=== PATIENT | male | born 1945 | race Caucasian/White ===

== ENCOUNTER 2024-08-02 09:45 | Inpatient (IN) | payer OTHER, SELFPAY ==
[2024-07-31 14:58] LABS: % Basophils 0.4 % (0-2); % Eosinophils 5.2 % (0-6); % Immature Granulocytes 0.3 % (0-0.5); % Lymphocytes 9.4 % (20.5-51.1); % Monocytes 6.6 % (1.7-9.3); % Neutrophils 78.1 % (42.2-75.2); Absolute Basophils 0.1 10^3/uL (0-0.2); Absolute Eosinophils 0.8 10^3/uL (0-0.7); Absolute Immature Granulocytes 0.1 10^3/uL (0-0.05); Absolute Lymphocytes 1.4 10^3/uL (1.2-3.4); Absolute Neutrophils 11.6 10^3/uL (1.4-6.5); Hemoglobin 12.7 g/dL (13.0-18.0); Mean Corp Hgb Conc. 31.8 g/dL (33.0-37.0); Mean Corpuscular Hgb 27.3 pg (27.0-31.0); Mean Platelet Volume 9.1 fL (7.4-10.4); Nucleated Red Blood Cells % 0 % (-); Platelet Count 330 10^3/uL (130-400); Red Blood Cell Count 4.65 10^6/uL (4.70-6.10); Red Cell Dist. Width 15.9 % (11.5-14.5); White Blood Cell Count 14.9 10^3/uL (4.8-10.8)
[2024-07-31 15:10] LABS: ALT (SGPT) 12 U/L (0-50); AST (SGOT) 23 U/L (17-59); Albumin 3.8 g/dl (3.5-5.0); Alkaline Phosphatase 91 U/L (38-126); Blood Urea Nitrogen 22 mg/dl (9-20); Calcium 9.2 mg/dl (8.4-10.2); Carbon Dioxide 28 mmol/L (22-30); Chloride 108 mmol/L (98-107); Glucose 116 mg/dl (70-99); Potassium 4.7 mmol/L (3.5-5.1); Sodium 142 mmol/L (135-145); Total Bilirubin 0.9 mg/dl (0.2-1.3); Total Protein 6.5 g/dl (6.3-8.2); eGFR > 60.00
[2024-07-31 16:21] VITALS: BMI 22.4
[2024-07-31 16:24] VITALS: BP 122/94
[2024-07-31 16:35] LABS: Urine Albumin 4+ (Neg - Trace); Urine Bilirubin Negative (Negative); Urine Character Cloudy (Clear); Urine Glucose Negative (Negative); Urine Ketone 2+ (Negative); Urine Leukocyte 3+ (Negative); Urine Nitrite Negative (Negative); Urine Occult Blood 4+ (Negative); Urine Specific Gravity 1.025 (<1.030); Urine Urobilinogen 1+ (Neg - 1+)
[2024-07-31 16:37] LABS: Urine Color Orange
[2024-07-31 16:43] LABS: Urine Squamous Cell 0-2 /LPF (Few)
[2024-07-31 16:44] LABS: Urine Bacteria Many (Negative); Urine Red Blood Cell 30-40 /HPF (0-2)
--- NOTE | 2024-07-31 18:01 | ED.GENMED ---
History of Present Illness
General
Chief Complaint: Abdominal Symptoms
Source: patient
Exam Limitations: none
Time Seen by Provider: 07/31/24 16:14
Nursing documentation reviewed up to this point in time: agreed with
History of Present Illness
History of Present Illness:
79-year-old male presenting to the emergency department today with concerns of what he believes is a hernia some swelling to the right lower suprapubic region and groin area. Ongoing for the past 10 days. Has been able to have bowel movements.
Does feel slight constipation. Denies any fevers nausea vomiting.
Review of Systems
Review of Systems
Allergies reviewed?: Yes
All Other Systems: ROS reviewed and negative except as documented in HPI and ROS
Phy Exam
Physical Exam
Physical Exam:
GENERAL: Alert , in no apparent distress
EYE: pupils equal and reactive
NECK: Supple, no significant adenopathy.
ENT: o/p clr, mmm.
CARDIAC: Regular rate and rhythm .
LUNGS: Clear breath sounds bilaterally, no acute respiratory distress, no wheezes/rales/rhonchi
ABDOMEN: Soft, without focal tenderness, no r/g, no cvat
NEUROLOGICAL: Alert and oriented, no focal neuro deficits
SKIN: Warm and dry, skin intact.
MUSCULOSKELETAL: No edema, well perfused.
PSYCH: Normal and appropriate interaction.
Course
Orders/Labs/Results
Orders:
Orders
07/31/24 14:48
Complete Blood Count/With Diff Urgent
Comprehensive Metabolic Panel Urgent
07/31/24 16:25
Urinalysis Reflex To Culture Urgent
Date Specimen was Collected: 07/31/24
Time Specimen was Collected: 16:22
Urine Microscopic Reflex Cult Urgent
Urine Culture Urgent
PEPPER Source: U
Specimen Description:
Obtained by: Random
Date Specimen was Collected: 07/31/24
Time Specimen was Collected: 16:22
07/31/24 16:58
CT Abd/Pel (IV only)-DH only Urgent
Comment:
Reason For Exam: right lower abd pain
07/31/24 20:12
Ibuprofen [Motrin] 600 mg PO NOW STA
Abnormal Lab Results
07/31/24 07/31/24
14:48 16:25
WBC 14.9 H 10^3/uL
(4.8-10.8)
RBC 4.65 L 10^6/uL
(4.70-6.10)
Hgb 12.7 L g/dL
(13.0-18.0)
MCHC 31.8 L g/dL
(33.0-37.0)
RDW 15.9 H %
(11.5-14.5)
Abs Immat Gran (auto) 0.1 H 10^3/uL
(0-0.05)
Absolute Neuts (auto) 11.6 H 10^3/uL
(1.4-6.5)
Absolute Monos (auto) 1.0 H 10^3/uL
(0.1-0.6)
Absolute Eos (auto) 0.8 H 10^3/uL
(0-0.7)
Neutrophils % 78.1 H %
(42.2-75.2)
Lymphocytes % 9.4 L %
(20.5-51.1)
Chloride 108 H mmol/L
(98-107)
BUN 22 H mg/dl
(9-20)
Glucose 116 H mg/dl
(70-99)
Urine Ketones 2+ A
(Negative)
Ur Occult Blood Reflex 4+ A
(Negative)
Leukocyte Esterase Rfl 3+ A
(Negative)
Urine RBC 30-40 A /HPF
(0-2)
Urine Bacteria (Reflex) Many A
(Negative)
Urine Albumin (Reflex) 4+ A
(Neg - Trace)
07/31/24 14:48
07/31/24 14:48
Vital Signs
Initial and Last Documented VS:
Initial Vital Signs
Temp Pulse Resp Pulse Ox
97.5 F 92 16 98
07/31/24 14:36 07/31/24 14:36 07/31/24 14:36 07/31/24 14:36
Last Documented Vital Signs
Temp Pulse Resp BP Pulse Ox
99.2 F 93 18 116/74 94
07/31/24 16:24 07/31/24 20:11 07/31/24 20:11 07/31/24 20:11 07/31/24 20:11
MDM/Problems Addressed
MDM/Problems Addressed:
79-year-old male presenting to the emergency department today with concerns of right groin discomfort believes he has a hernia seems to be out for the last 10 days has been able to have bowel movements no nausea or vomiting. Mild discomfort to the
area here. No significant redness or warmth. CT scan performed showing significant inflammation to the bladder potentially consistent with mural mass as well as additional findings potentially consistent with metastatic disease as well as
alternate cancerous process. Concerning the patient likely has very poor outpatient follow-up has not followed up regularly in many years patient was admitted for further assessment of this.
*Critical Care Note
Total Time (30-74mins, 75-104mins- exclusive of procedures): Not Applicable
ED Attending Note
-
Portions of this chart may have been created with voice recognition software.� Occasional wrong word or��sound alike� substitutions may have occurred due to the inherent limitations of voice recognition software.
Discharge Plan
Departure
Patient Disposition: Admit
Date of Disposition: 07/31/24
Time of Disposition: 21:17
Admit to: Med/Surg
Admit to doctor: Aurelio
Presentation/result/management discussed w/ accepting MD/DO: Hospitalist
Patient with high blood pressure during this ER visit?: No
Condition: Good
Covid-19: Not Applicable
Discharge Problem:
Bladder mass
Prescriptions:
No Action
acetaminophen [Tylenol] 325 mg Tablet
650 mg PO TID
Referrals:
Steven Carey MD [Family Provider, Internal Medicine]
Interventions
Interventions:
*Risk Screen - Suicide Last Done: 07/31/24 14:36
*General Assessment Last Done: 07/31/24 16:22
*Neglect/Abuse Screening Last Done: 07/31/24 14:36
*ED- Fall Risk Assessment Last Done: 07/31/24 16:22
*ED COVID-19 Vaccine History Last Done: 07/31/24 16:22
SM-Qbdpmq-Elesqnsfnq Assessment Last Done: 07/31/24 16:35
Discharge Date and Time
Print Language: GUAMANIAN
[2024-07-31 18:14] VITALS: BP 147/73
[2024-07-31 20:11] VITALS: BP 116/74
[2024-07-31] MEDS: MOTRIN 600 MG PO (20:25)
--- NOTE | 2024-07-31 20:45 | HPS.HSE ---
Addendum entered and electronically signed by Beltran Carey DO 07/31/24 22:35:
Patient seen and examined independently. Agree with findings and plan as set forth by TRISTEN Corcoran.
Patient is a 79y M with PMH significant for BPH who presents to ED complaining of R groin pain and bulging. Patient states that he has had pain in the R groin area for about 2 years now. This has become progressively worse. he has been using a
cane for ambulation and notes that he cannot stand for long periods or ambulate well due to pain. He was seen by his PCP in May who felt this may be arthritis and advised x-rays. He did not have those completed. More recently, patient has noted
'bulge' in the area of the R groin - this has been for about 10 days. He presented to the ED this evening for evaluation.
Incidentally, patient complains of urinary symptoms which he attributes to enlarged prostate. This includes difficulty with urination as well as fairly frequent / intermittent hematuria.
He denies any chest pain or dyspnea.
He is a life-long smoker.
Ass:
Bladder Mass
Mediastinal Mass
Right Groin Pain
Plan:
Admit for further evaluation and treatment.
Urology evaluation for bladder mass / thickening and hematuria.
Would likely benefit from cystoscopic examination.
? if bladder abnormality / associated inflammation explain his R groin pain symptom?
Dedicated CT Chest in AM for evaluation of mediastinal mass.
Pulm / IR / CT Surgery evaluation for further input / tissue sampling following results of chest imaging.
PT eval. Pain control.
Original Note:
Family Physician
-
Family Physician: Steven Carey
Chief Complaint
-
right groin/RLQ of abdomen pain
History of Present Illness
Patient is a 79-year-old male with past medical history significant for enlarged prostate who presented to [facility] ED for evaluation of pain to right groin and right lower quadrant abdomen. Patient states he has what he believes to appear as a right
inguinal hernia that has been causing extreme sharp pain with movement or when he coughs. He explains there is enlarged area in right groin/right lower quadrant of abdomen that has been present for approximately 10 days. He denies any fever, chills,
shortness of breath, chest pain, nausea, vomiting, constipation, diarrhea or new urinary symptoms. Patient states he has known he has had an enlarged prostate for last three years and frequently notices hematuria. He also reports a dry cough for the
past week.
Medical History
Past Medical History
Past Medical History: Reports Other
Additional Past Medical History:
enlarged prostate
Past Surgical History: Reports None
Social History
Tobacco: Smoker (0.5 pack per day for 65 years, approximately 32 pack year history )
Alcohol: None
Drug: None
Personal:
Living: Other (motel in [place] with a roommate )
Employment: Retired
Family History
Family History: Not pertinent
Allergies / Home Medications
Allergies reflects when Allergies were last updated in [facility].
Home Medications with original date entered in [facility]
Allergy/Medication List:
Allergies
Allergy/AdvReac Type Severity Reaction Status Date / Time
No Known Allergies Allergy Verified 07/31/24 16:28
Home Medications
acetaminophen 325 mg tablet (Tylenol) 650 mg PO TID 07/31/24
Review of Systems
-
History Source: Patient
Respiratory: Reports Cough (dry )
Abdomen/GI: Reports Abdominal Pain (RLQ and right groin pain with movement or coughing )
: Reports Urgency and Bleeding
Physical Exam
Vital Signs
Vital Signs
Temp Pulse Resp BP Pulse Ox
99.2 F 93 18 116/74 94
07/31/24 16:24 07/31/24 20:11 07/31/24 20:11 07/31/24 20:11 07/31/24 20:11
Physical Exam
General: Well Developed, Well Nourished and No Apparent Distress
HEENT: NormoCephalic, Moist mucous membranes and Atraumatic
Respiratory: Clear
Cardiac: S1/S2 and Regular Rhythm
Breast: Deferred by me
GI: Soft, Non Tender, Non Distended, Normal Bowel Sounds and Other (enlarged area, soft and tender to palpation in RLQ )
Rectal: Deferred by Provider
Genito-urinary: Deferred by me
Musculoskeletal: No Clubbing, No Cyanosis and No Edema
Skin: IV/Catheter Site
Neuro: Awake, Alert, AO x 3 and Nonfocal/grossly intact
Psych: Calm
Laboratory Results
-
07/31/24 14:48
07/31/24 14:48
Laboratory Results
Total Bilirubin 0.9 mg/dl (0.2-1.3) 07/31/24 14:48
AST 23 U/L (17-59) 07/31/24 14:48
ALT 12 U/L (0-50) 07/31/24 14:48
Alkaline Phosphatase 91 U/L (38-126) 07/31/24 14:48
Data Reviewed
-
CT Scan: Report Reviewed by me (Abd/Pel: Severe superior bladder wall thickening concerning for a mural mass. Cystitis and bladder outlet obstruction cannot be excluded. Moderate prostate hypertrophy. Focal luminal narrowing of the mid transverse
colon possibly peristalsis. An apple core lesion cannot be excluded. This could fur)
Lab Data: Labs Reviewed by me (WBC 14.9, )
Impression/Plan
-
IMPRESSION/PLAN:
#bladder mass
#mediastinum mass
Abd/Pel CT: Severe superior bladder wall thickening concerning for a mural mass. Cystitis and bladder outlet obstruction cannot be excluded.
Moderate prostate hypertrophy.
Focal luminal narrowing of the mid transverse colon possibly peristalsis. An apple core lesion cannot be excluded. This could further be evaluated by barium enema or colonoscopy. Repeat
imaging with rectal contrast was also be performed.
Too small to hypodense hepatic lesions likely small cysts or hemangiomas. Additional hypodense lesion near the fissure for the ligamentum teres likely focal fatty infiltration. Metastatic disease
cannot be excluded.
Incompletely imaged pleural-based soft tissue mass along the right mediastinum concern for malignancy until proven otherwise. Nonurgent chest CT examination recommended with IV contrast
if not already known. Adjacent second mass versus focal consolidated lung.
Small right pleural effusion.
Gallstone.
Simple left renal cyst.
- Admit to med/surg
- Consult urology
- Chest CT with IV contrast in AM
Code status: DNR
DVT prophylaxis: Lovenox sq
[2024-07-31 21:54] VITALS: BP 117/67
[2024-08-01 00:11] VITALS: BP 118/68
[2024-08-01 00:42] VITALS: BP 114/66
[2024-08-01 00:43] VITALS: BMI 22.0
[2024-08-01] MEDS: NSS 1000 IV ×2 (01:18→14:33)
[2024-08-01 05:32] LABS: Hematocrit 37.1 % (39.0-52.0); Hemoglobin 11.9 g/dL (13.0-18.0); Mean Corp Hgb Conc. 32.1 g/dL (33.0-37.0); Mean Corpuscular Hgb 27.3 pg (27.0-31.0); Mean Corpuscular Volume 85.1 fL (80.0-94.0); Mean Platelet Volume 9.2 fL (7.4-10.4); Platelet Count 298 10^3/uL (130-400); Red Blood Cell Count 4.36 10^6/uL (4.70-6.10); Red Cell Dist. Width 15.9 % (11.5-14.5); White Blood Cell Count 11.9 10^3/uL (4.8-10.8)
[2024-08-01 05:54] LABS: Blood Urea Nitrogen 18 mg/dl (9-20); Calcium 8.9 mg/dl (8.4-10.2); Carbon Dioxide 28 mmol/L (22-30); Chloride 107 mmol/L (98-107); Estimated Creatinine Clearance 72 ml/min; Glucose 85 mg/dl (70-99); Potassium 4.5 mmol/L (3.5-5.1); Sodium 140 mmol/L (135-145); eGFR > 60.00
[2024-08-01 07:29] VITALS: BP 125/67
--- NOTE | 2024-08-01 09:47 | CONS.URO ---
Consultation
-
Date/Time Consultation Performed: 0900 08/01/24
Performing Provider: Peffer
Reason for Consultation: Bladder mass
Medical History
History of Present Illness
79M with hx BPH remotely seen by our practice who presented to ED complaining of R groin pain and bulging.
Patient states that he has had pain in the R groin area for about 2 years andhas become progressively worse.
he has been using a cane for ambulation and notes that he cannot stand for long periods or ambulate well due to pain.
He was seen by his PCP in May who felt this may be arthritis and advised x-rays. He did not have those completed.
More recently, patient has noted 'bulge' in the area of the R groin - this has been for about 10 days. He presented to the ED this evening for evaluation.
Incidentally, patient complains of urinary symptoms which he attributes to enlarged prostate. This includes difficulty with urination as well as fairly frequent / intermittent hematuria.
Hematuria has been present for several years
He has not addressed this due to caring for his who was ill. His last year
He is a life-long smoker
CT scan showed large bladder mass, mediastinal mass, and other findings concerning for metastatic disease
Past Medical History
Past Medical History: Other (BPH)
Social History
Tobacco: Smoker
Personal:
Living: With Roommate
Family History
Family History: Reviewed & Not Pertinent
Allergies/Home Medications
Allergies
Allergy/AdvReac Type Severity Reaction Status Date / Time
No Known Allergies Allergy Verified 07/31/24 16:28
Home Medications
�Medication �Instructions �Recorded �Confirmed �Type
acetaminophen 325 mg tablet 650 mg PO TID 07/31/24 07/31/24 History
(Tylenol)
Physical Exam
Vital Signs
Vital Signs
Temp Pulse Resp BP Pulse Ox
98.7 F 95 14 125/67 93
08/01/24 07:29 08/01/24 07:29 08/01/24 07:29 08/01/24 07:29 08/01/24 07:29
Lab / Testing Results
Laboratory Results
08/01/24 05:16
08/01/24 05:16
Physical Exam
General: Well Developed, Well Nourished and Other (disheveled)
Respiratory: Clear and Non Labored Respirations
GI: Soft and Non Tender
Genito-urinary: No Costovertebral Tend and Other (RLQ/groin bulge which is reducible in supine position c/w hernia)
Skin: Warm and Dry
Neuro: AO x 3
Psych: Calm and Intact Judgement
Assessment / Plan
-
79M with several years of gross hematuria found to have large bladder mass, mediastinal mass concerning for metastatic disease
Presented for evaluation of chronic pain from R groin bulge
- Very large circumferential bladder tumor encompassing large portion of the bladder wall and is most likely an unresectable invasive urothelial carcinoma
- CT chest pending to further eval mediastinal mass
- Send urine for cytology
- Consider percutaneous biopsy of mediastinal mass if feasible for tissue diagnosis
- Discussed TURBT procedure to further evaluate and obtain a tissue biopsy to help guide additional treatment
- Unclear if this procedure would have benefit outside of pathologic confirmation as it does not appear resectable, and extent of tumor may prove difficult to obtain hemostasis
- If alternate pathology source can be obtained, TURBT could be delayed and revisited following systemic therapy if still necessary from a palliative standpoint
- Patient states he does not want to undergo any procedures at this time. He states he has very poor QOL and would not want to go through any surgery, chemotherapy, or procedures and would prefer comfort measures only. This seems to be at least
partly due to difficulty of his current living situation in a motel with a roommate and the relatively recent of his
- Recommend social work/CM eval to discuss
- Painful R groin bulge is likely an inguinal hernia and disappears when lying supine. Nothing seen on imaging in this region
Data Reviewed
-
CT Scan: Image personally visualized and interpreted
Lab Data: Labs Reviewed
[2024-08-01 11:39] VITALS: BP 110/73; BP 131/72; PULSE 99; O2SAT 99
--- NOTE | 2024-08-01 11:54 | W.PN.HOSP.TC ---
Today's Communication/Plan
-
Monitor vital signs see plan
Continue with fluids
Consult pulmonary
Urology following
Called daughter, left voicemail
If patient does not want any intervention then likely hospice will be appropriate
Pain control
Assessment / Plan
Assessment / Plan
General: Well Developed, Well Nourished and No Apparent Distress
HEENT: NormoCephalic, Moist mucous membranes and Atraumatic
Respiratory: Clear
Cardiac: S1/S2 and Regular Rhythm
GI: Soft, Non Tender, Non Distended, Normal Bowel Sounds and Other (enlarged area, soft and tender to palpation in RLQ )
Genito-urinary: no snow
Musculoskeletal: No Edema
Neuro: Awake, Alert, AO x 3 and Nonfocal/grossly intact
Psych: Calm
#bladder mass
#mediastinum mass
Abd/Pel CT: Severe superior bladder wall thickening concerning for a mural mass. Cystitis and bladder outlet obstruction cannot be excluded.
Moderate prostate hypertrophy.
Focal luminal narrowing of the mid transverse colon possibly peristalsis. An apple core lesion cannot be excluded. This could further be evaluated by barium enema or colonoscopy. Repeat
imaging with rectal contrast was also be performed.
Too small to hypodense hepatic lesions likely small cysts or hemangiomas. Additional hypodense lesion near the fissure for the ligamentum teres likely focal fatty infiltration. Metastatic disease
cannot be excluded.
Incompletely imaged pleural-based soft tissue mass along the right mediastinum concern for malignancy until proven otherwise. Nonurgent chest CT examination recommended with IV contrast
if not already known. Adjacent second mass versus focal consolidated lung.
Small right pleural effusion.
Gallstone.
Simple left renal cyst.
Urology following, they discussed TURP procedure to further evaluate and obtain a tissue biopsy. Patient at this time likely is going to refuse any procedures. He will also speak to his daughter regarding this. I called his daughter as well, left
voicemail.
CT chest 6/2 with invasive mediastinal mass. Pulmonary consulted
Per patient he has been having hematuria for a long time however did not follow-up
The patient and family would not want any further treatment then likely hospice will be appropriate
History of smoking
Possible inguinal hernia
Code status: DNR
DVT prophylaxis: Lovenox sq
I spent a total of 52 minutes with the patient or on the floor. More than 50% of this time involved counseling and coordination of care.
Anticipated Discharge: 24 - 48 hours
Subjective/Interval History
-
Date of Service: August 01, 2024
has pain
Objective Data
-
Labs:
Laboratory Results
08/01/24
05:16
WBC 11.9 H
Hgb 11.9 L
Hct 37.1 L
Plt Count 298
Sodium 140
Potassium 4.5
Chloride 107
Carbon Dioxide 28
BUN 18
Creatinine 0.8
Glucose 85
Calcium 8.9
Vital Signs:
Vital Signs
Temp Pulse Resp BP Pulse Ox
98.7 F 95 14 125/67 93
08/01/24 07:29 08/01/24 07:29 08/01/24 07:29 08/01/24 07:29 08/01/24 07:29
I&O
07/31/24 08/01/24 08/02/24
06:59 06:59 06:59
Output Total 850 / 850
Balance -850 / -850
--- NOTE | 2024-08-01 12:15 | CON.PUL ---
Consultation
Consultation Request
Date/Time Consultation Requested: 08/01/2024
Date/Time Consultation Performed: 08/01/2024
Requesting Provider: Dr. Larose
Performing Provider: Dr. Satish Evangelista
Reason for Consultation: Pulmonary mass
Medical History
-
History of Present Illness:
79-year-old male with past medical history significant for BPH presented to the emergency room at [facility] complaining of right groin pain and bulging. Pain has been present for 2 years but has been progressively getting worse. Due to
pain he has been having ambulatory dysfunction. More recently noted a bulge about 10 days ago on his right groin. Came to the emergency room for evaluation of that.
Patient was found to have a bladder mass, a mediastinal mass on imaging.
Does report 20 pound weight loss in the last few months
Patient is a smoker half a pack to a quart a pack per day.
Does not drink alcohol.
Urology consulted to evaluate his bladder mass: Correspondence reviewed possible unresectable urothelial carcinoma.
Patient health has been declining. Currently living in a motel. His recently passed.
We were consulted on 08/01/2024 to evaluate mediastinal mass.
Past Medical History
Past Medical History: Other
Social History
Tobacco: Former Smoker (Have a pack per day for 65 years. 70-dzch-njlk history.)
Alcohol: None
Drug: None
Personal:
Living: Other (Unremarkable with a roommate)
Employment: Retired
Family History
Family History: Reviewed & Not Pertinent
Allergies / Home Medications
Allergies
Allergy/AdvReac Type Severity Reaction Status Date / Time
No Known Allergies Allergy Verified 07/31/24 16:28
Home Medications
�Medication �Instructions �Recorded �Confirmed �Last Taken �Type
acetaminophen 325 mg tablet 650 mg PO TID 07/31/24 07/31/24 Unknown History
(Tylenol)
Review of Systems
-
History Source: Patient
All other systems: Negative unless noted
Vitals / Labs / Diagnostic Testing
Vital Signs
Temp Pulse Resp BP Pulse Ox
98.7 F 95 14 125/67 93
08/01/24 07:29 08/01/24 07:29 08/01/24 07:29 08/01/24 07:29 08/01/24 07:29
Lab Data
08/01/24 05:16
08/01/24 05:16
Diagnostic Testing:
Physical Exam
-
HEENT: Normocephalic
Cardiovascular: S1/S2
Respiratory: Non-Labored Respirations
GI: Soft and Non Distended
Neurology: Awake and AO x 3
Skin: Warm
General: Comfortable
Assessment
-
79-year-old man smoker who came to the hospital complaining of right groin pain with ambulatory dysfunction. Found to have a large bladder mass. Incidental lung mass also was found. We were consulted on 08/01/2024 for evaluation.
Lung/mediastinal mass: Incidental finding this admission.
Tobacco abuse
CT chest reviewed:
lobulated soft tissue mass invading the right mediastinum measuring roughly 6.7 x 4.4 x 8.0 cm. The mass severely compresses the SVC and appears to invade into the left atrium with occlusion of the anterior right pulmonary vein. There is mass effect
and narrowing of the right main pulmonary artery and encasement and narrowing of the right middle lobe and upper lobe pulmonary arteries. Several additional enlarged mediastinal lymph nodes identified compatible with metastases, including a
subcarinal node measuring 20 mm short axis.
Bladder mass-hematuria
Assessment and plan:
Unfortunately, patient does have a large central right sided lung mass with invasion to the mediastinum and possibly the heart.
With also large unresectable likely bladder cancer.
-
This could be primary pulmonary carcinoma versus less likely metastatic disease from possible transitional cell carcinoma.
If pulmonary carcinoma is likely locally metastatic, possibly has a right small malignant pleural effusion as well.
Unclear whether there is liver metastatic disease as well. too small to characterize.
-
From the pulmonary perspective this patient will be very high risk to perform bronchoscopy given possibly invasion to the heart. High risk for complications under anesthesia.
Prefer percutaneous biopsy if possible-if percutaneous not feasible then can attempt high risk bronchoscopy approach.
-
Patient states that he has a poor living situation, his health has been declining. He is thinking about next step- He was discussed with daughter today. He is leaning towards moving to hospice care instead of proceeding with aggressive
intervention.
If no biopsy is decided, patient will be hospice appropriate.
-
Will follow
[2024-08-01] MEDS: TYLENOL 650 MG PO ×2 (12:58→23:39)
[2024-08-01 13:31] VITALS: BMI 22.0
[2024-08-01 15:19] VITALS: BP 128/71
[2024-08-01] MEDS: LOVENOX 40 MG SC (17:44)
[2024-08-01 18:59] LABS: Hepatitis C Antibody Negative (Negative)
[2024-08-01 23:00] VITALS: BP 132/73
[2024-08-02] MEDS: NSS 1000 IV (03:18)
[2024-08-02] MEDS: Pyridium 100 MG PO ×3 (05:13→18:00)
[2024-08-02 05:14] VITALS: BMI 22.1
[2024-08-02 05:43] LABS: % Basophils 0.3 % (0-2); % Immature Granulocytes 0.5 % (0-0.5); % Lymphocytes 10.5 % (20.5-51.1); % Neutrophils 74.7 % (42.2-75.2); Absolute Eosinophils 0.7 10^3/uL (0-0.7); Absolute Immature Granulocytes 0.1 10^3/uL (0-0.05); Absolute Lymphocytes 1.2 10^3/uL (1.2-3.4); Absolute Monocytes 0.9 10^3/uL (0.1-0.6); Absolute Neutrophils 8.6 10^3/uL (1.4-6.5); Hematocrit 36.3 % (39.0-52.0); Hemoglobin 11.4 g/dL (13.0-18.0); Mean Corp Hgb Conc. 31.4 g/dL (33.0-37.0); Mean Platelet Volume 9.2 fL (7.4-10.4); Nucleated Red Blood Cells % 0 % (-); Platelet Count 301 10^3/uL (130-400); Red Blood Cell Count 4.22 10^6/uL (4.70-6.10); Red Cell Dist. Width 15.9 % (11.5-14.5); White Blood Cell Count 11.5 10^3/uL (4.8-10.8)
[2024-08-02 06:18] LABS: Blood Urea Nitrogen 15 mg/dl (9-20); Calcium 8.5 mg/dl (8.4-10.2); Carbon Dioxide 25 mmol/L (22-30); Chloride 109 mmol/L (98-107); Estimated Creatinine Clearance 83 ml/min; Glucose 87 mg/dl (70-99); Potassium 4.3 mmol/L (3.5-5.1); Sodium 139 mmol/L (135-145); eGFR > 60.00
[2024-08-02 07:34] VITALS: BP 123/72
[2024-08-02] MEDS: TYLENOL 650 MG PO ×2 (09:07→16:10)
[2024-08-02] MEDS: FLOMAX 0.4 MG PO (10:47)
--- NOTE | 2024-08-02 13:03 | W.PN.HOSP.TC ---
Today's Communication/Plan
-
Monitor vital signs
see plan
Flomax
Pyridium
Discussed with patient again today and daughter, plan for palliative/hospice. Will need social support. manager gaming consulted
Patient does not want any invasive measures.
Assessment / Plan
Assessment / Plan
General: Well Developed, Well Nourished and No Apparent Distress
HEENT: NormoCephalic, Moist mucous membranes and Atraumatic
Respiratory: Clear
Cardiac: S1/S2 and Regular Rhythm
GI: Soft, Non Tender, Non Distended, Normal Bowel Sounds and Other (enlarged area, soft and tender to palpation in RLQ )
Genito-urinary: no snow
Musculoskeletal: No Edema
Neuro: Awake, Alert, AO x 3 and Nonfocal/grossly intact
Psych: Calm
#bladder mass
#mediastinum mass
Abd/Pel CT: Severe superior bladder wall thickening concerning for a mural mass. Cystitis and bladder outlet obstruction cannot be excluded.
Moderate prostate hypertrophy.
Focal luminal narrowing of the mid transverse colon possibly peristalsis. An apple core lesion cannot be excluded. This could further be evaluated by barium enema or colonoscopy. Repeat
imaging with rectal contrast was also be performed.
Too small to hypodense hepatic lesions likely small cysts or hemangiomas. Additional hypodense lesion near the fissure for the ligamentum teres likely focal fatty infiltration. Metastatic disease
cannot be excluded.
Incompletely imaged pleural-based soft tissue mass along the right mediastinum concern for malignancy until proven otherwise. Nonurgent chest CT examination recommended with IV contrast
if not already known. Adjacent second mass versus focal consolidated lung.
Small right pleural effusion.
Gallstone.
Simple left renal cyst.
Urology following, they discussed TURP procedure to further evaluate and obtain a tissue biopsy. Patient at this time likely is going to refuse any procedures. Patient daughter also aware. Patient is very sure that he does not want any invasive
intervention. Discussed with director case management. Consulted palliative/hospice.
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 Pulmonary following; high risk
Per patient he has been having hematuria for a long time however did not follow-up
The patient and family would not want any further treatment then likely hospice will be appropriate
History of smoking
BPH
start flomax
Possible inguinal hernia
Code status: DNR
DVT prophylaxis: Lovenox sq
I spent a total of 52 minutes with the patient or on the floor. More than 50% of this time involved counseling and coordination of care.
Anticipated Discharge: Within 24 hours
Subjective/Interval History
-
Date of Service: August 02, 2024
has some pain
Objective Data
-
Labs:
Laboratory Results
08/02/24
05:24
WBC 11.5 H
Hgb 11.4 L
Hct 36.3 L
Plt Count 301
Sodium 139
Potassium 4.3
Chloride 109 H
Carbon Dioxide 25
BUN 15
Creatinine 0.7
Glucose 87
Calcium 8.5
Vital Signs:
Vital Signs
Temp Pulse Resp BP Pulse Ox
98.7 F 90 14 123/72 92
08/02/24 07:34 08/02/24 07:34 08/02/24 07:34 08/02/24 07:34 08/02/24 07:34
I&O
08/01/24 08/02/24 08/03/24
06:59 06:59 06:59
Intake Total 880 / 880
Output Total 850 / 850 850 / 850
Balance -850 / -850
--- NOTE | 2024-08-02 13:17 | W.PN.PUL3 ---
Today's Communication / Plan
-
Focus on comfort
DNR status
Sign off
Assessment
-
79-year-old man smoker who came to the hospital complaining of right groin pain with ambulatory dysfunction. Found to have a large bladder mass. Incidental lung mass also was found. We were consulted on 08/01/2024 for evaluation.
Lung/mediastinal mass: Incidental finding this admission.
Tobacco abuse
CT chest reviewed:
lobulated soft tissue mass invading the right mediastinum measuring roughly 6.7 x 4.4 x 8.0 cm. The mass severely compresses the SVC and appears to invade into the left atrium with occlusion of the anterior right pulmonary vein. There is mass effect
and narrowing of the right main pulmonary artery and encasement and narrowing of the right middle lobe and upper lobe pulmonary arteries. Several additional enlarged mediastinal lymph nodes identified compatible with metastases, including a
subcarinal node measuring 20 mm short axis.
Bladder mass-hematuria
Assessment and plan:
Unfortunately, patient does have a large central right sided lung mass with invasion to the mediastinum and possibly the heart.
With also large unresectable likely bladder cancer-with ongoing hematuria.
-
This could be primary pulmonary carcinoma versus less likely metastatic disease from possible transitional cell carcinoma.
If pulmonary carcinoma is likely locally metastatic, possibly has a right small malignant pleural effusion as well.
Unclear whether there is liver metastatic disease as well. too small to characterize.
-
From the pulmonary perspective this patient will be very high risk to perform bronchoscopy given possibly invasion to the heart.
High risk for complications under anesthesia.
Prefer percutaneous biopsy if possible-if percutaneous not feasible then can attempt high risk bronchoscopy approach.
-
Patient states that he has a poor living situation, his health has been declining.
I again had extensive discussion with patient on 08/02/2024. Told him that likely due to cancer there are advanced. Chemotherapy probably will be needed if he proceeds with aggressive care.
He states that at this point he does not want any procedures or biopsies.
Hospice appropriate.
-
No additional recommendation from the pulmonary perspective at this point. Focus on comfort.
If patient disposition changes on point please call back with questions.
Sign off
Now DNR status
-
Will follow
Subjective Data
-
Date of Service:
Date of Service: August 02, 2024
Chief Complaint: Pulmonary Follow Up (Lung mass)
Subjective:
Continues to report of hematuria, discomfort on lower abdomen/pelvis.
Denies chest pain or shortness of breath at rest
Review of Systems
Cardiopulmonary: Dyspnea (None at rest), Cough, Sputum Production (n) and Hemoptysis (n)
GI: Abdominal Pain
Objective Data
Data Reviewed
Vital Signs / I&O / Oxygen:
Vital Signs
Temp Pulse Resp BP Pulse Ox
98.7 F 90 14 123/72 92
08/02/24 07:34 08/02/24 07:34 08/02/24 07:34 08/02/24 07:34 08/02/24 07:34
Intake and Output
08/01/24 08/02/24 08/03/24
06:59 06:59 06:59
Intake Total 880 / 880
Output Total 850 / 850 850 / 850
Balance -850 / -850 30 / 30
SaO2 92
Physical Exam
General: Comfortable
HEENT: Normocephalic
Cardiovascular: S1-S2 and Regular Rhythm
Respiratory: Clear and Non-Labored Respirations
GI: Soft and Non Distended
Neurology: Awake, Alert and Oriented
Skin: Warm
Labs/Micro/Reports
Lab Data
08/02/24 05:24
08/02/24 05:24
Microbiology
07/31/24 16:25 Urine Urine Culture - Final
NO GROWTH
[2024-08-02 15:17] VITALS: BP 102/63
--- NOTE | 2024-08-02 16:59 | CM ---
Spoke with pt he said he will not be returning to motel he shares with friend Ronnell. He said he wants to go to SNF for hospice. Explained that hospice is not covered under insurance only skilled.
He requested to speak with hospice . Referral placed and Francisco Corley aware.
IMM copy given explained signed on chart.
Pt gave CM number for his CM at insurance [employer] . Name Georgina [phone] or [phone].
Will need to contact [facility] for dc planning.
PLAN Contact [facility] to assist in dc planning.
[2024-08-02] MEDS: LOVENOX 40 MG SC (18:00)
[2024-08-02 23:00] VITALS: BP 130/72
[2024-08-03 05:43] LABS: % Basophils 0.4 % (0-2); % Eosinophils 5.5 % (0-6); % Immature Granulocytes 0.5 % (0-0.5); % Lymphocytes 8.4 % (20.5-51.1); % Monocytes 6.9 % (1.7-9.3); % Neutrophils 78.3 % (42.2-75.2); Absolute Basophils 0.1 10^3/uL (0-0.2); Absolute Eosinophils 0.7 10^3/uL (0-0.7); Absolute Immature Granulocytes 0.1 10^3/uL (0-0.05); Absolute Monocytes 0.8 10^3/uL (0.1-0.6); Absolute Neutrophils 9.3 10^3/uL (1.4-6.5); Hematocrit 33.5 % (39.0-52.0); Hemoglobin 10.7 g/dL (13.0-18.0); Mean Corp Hgb Conc. 31.9 g/dL (33.0-37.0); Mean Corpuscular Hgb 27.2 pg (27.0-31.0); Mean Platelet Volume 9.2 fL (7.4-10.4); Nucleated Red Blood Cells % 0 % (-); Platelet Count 277 10^3/uL (130-400); Red Blood Cell Count 3.94 10^6/uL (4.70-6.10); Red Cell Dist. Width 15.6 % (11.5-14.5); White Blood Cell Count 11.9 10^3/uL (4.8-10.8)
[2024-08-03 06:00] VITALS: BMI 22.4
[2024-08-03 06:08] LABS: Blood Urea Nitrogen 14 mg/dl (9-20); Calcium 8.3 mg/dl (8.4-10.2); Carbon Dioxide 23 mmol/L (22-30); Chloride 110 mmol/L (98-107); Estimated Creatinine Clearance 83 ml/min; Glucose 100 mg/dl (70-99); Sodium 139 mmol/L (135-145); eGFR > 60.00
[2024-08-03 07:51] VITALS: BP 122/71
[2024-08-03] MEDS: FLOMAX 0.4 MG PO (08:50)
--- NOTE | 2024-08-03 08:52 | HOSPNOTE ---
Spoke with patient he is in agreement with hospice however needs placement. Patient stated he does have medicaid and would like a referral sent to [place]. Once patient is at the facility we will sign patient onto hospice services. CM updated and will
await placement.
--- NOTE | 2024-08-03 10:47 | PN.CDI ---
CDI
- -
CDI:
Physician Documentation Request
Admit Date: 08/02/24 09:45
Dear Doctor Thuan,
Patient admitted for bladder mass.
08/01 Transport Aircrewman Assessment: 'Pt meets criteria for severe protein calorie malnutrition of chronic illness with >14.5% weight loss x 2 months, prolonged inadequate intake prior to admit <75% for >1mo. RD offered to Ensure supplement BID when
diet advanced.'
Based on the above information and your assessment, which of the following most accurately represents the patient's nutritional status?
Severe protein calorie malnutrition
Other
[place] Criteria ([facility] Hospitalist 2017)
2 or more criteria must be present for either
non severe or severe malnutrition
Note that the criteria differs related to the
presence of an acute or chronic illness
Acute Illness Chronic Illness
Energy Intake Non Severe: <75% for >7 days Non Severe: <75% for >1 month
Severe: <50% for >5 days Severe: <75% for >1 month
Weight Loss Non Severe: 1-2% over 1 week Non Severe: 5% over 1 month
5% over 1 month 7.5% over 3 months
7.5% over 3 months 10% over 6 months
1 year N/A 20% over 1 year
Severe: >2% over 1 week Severe: >5% over 1 month
>5% over 1 month >7.5% over 3 months
>7.5% over 3 months >10% over 6 months
1 year N/A >20% over 1 year
Body Fat Non Severe: Mild Decrease Non Severe: Mild Loss
Severe: Moderate Decrease Severe: Severe Loss
Muscle Mass Non Severe: Mild Decrease Non Severe: Mild Loss
Severe: Moderate Decrease Severe: Severe Loss
Fluid Accumulation Non Severe: Mild Accumulation Non Severe: Mild Accumulation
Severe: Moderate to severe Severe: Moderate to severe
accumulation accumulation
Reduced Baggage And Mail Agent Strength Non Severe: N/A Non Severe: N/A
Severe: Measurably reduced Severe: Measurably reduced
Additional criteria that can be used to Determine if Mild or Moderate Malnutrition ([employer]ck Manual 2018)
Mild Moderate Severe
Albumin gm/dl <3.0 gm/dl <2.5 gm/dl <2.0 gm/dl
Pre Albumin mg/dl <15 gm/dl <10 mg/dl <5.0 mg/dl
BMI <18.5 <17 <16
Use of terms such as suspected, likely, concern for, or probable (associated with a specific diagnosis that is being evaluated, monitored, or treated as if it exists) are acceptable and can be coded in the inpatient setting, when documented at the
time of discharge.
Thank you,
Misa Lockett RN, BSN
CDI Specialist
Available via [employer] text
Please use your independent medical judgment in providing your response.
--- NOTE | 2024-08-03 11:57 | W.PN.HOSP.TC ---
Today's Communication/Plan
-
Monitor vitals
See plan
Hospice, case maker assisting with disposition
Pain control
Continue Flomax
Assessment / Plan
Assessment / Plan
General: Well Developed, Well Nourished and No Apparent Distress
HEENT: NormoCephalic, Moist mucous membranes and Atraumatic
Respiratory: Clear
Cardiac: S1/S2 and Regular Rhythm
GI: Soft, Non Tender, Non Distended, Normal Bowel Sounds and Other (enlarged area, soft and tender to palpation in RLQ )
Genito-urinary: no snow
Musculoskeletal: No Edema
Neuro: Awake, Alert, AO x 3 and Nonfocal/grossly intact
Psych: Calm
#bladder mass
#mediastinum mass
Abd/Pel CT: Severe superior bladder wall thickening concerning for a mural mass. Cystitis and bladder outlet obstruction cannot be excluded.
Moderate prostate hypertrophy.
Focal luminal narrowing of the mid transverse colon possibly peristalsis. An apple core lesion cannot be excluded. This could further be evaluated by barium enema or colonoscopy. Repeat
imaging with rectal contrast was also be performed.
Too small to hypodense hepatic lesions likely small cysts or hemangiomas. Additional hypodense lesion near the fissure for the ligamentum teres likely focal fatty infiltration. Metastatic disease
cannot be excluded.
Incompletely imaged pleural-based soft tissue mass along the right mediastinum concern for malignancy until proven otherwise. Nonurgent chest CT examination recommended with IV contrast
if not already known. Adjacent second mass versus focal consolidated lung.
Small right pleural effusion.
Gallstone.
Simple left renal cyst.
Urology following, they discussed TURP procedure to further evaluate and obtain a tissue biopsy. Patient at this time refusing any procedures/interim. Patient daughter also aware. Patient is very sure that he does not want any invasive
intervention. Discussed with case maker. Consulted palliative/hospice. for assistance with placement if patient qualifies. Will start checking routine labs
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 Pulmonary following; high risk
Per patient he has been having hematuria for a long time however did not follow-up
The patient and family would not want any further treatment then likely hospice will be appropriate
History of smoking
Severe protein calorie malnutrition
Continue Ensure
BPH
start flomax
Possible inguinal hernia
Code status: DNR
DVT prophylaxis: Lovenox sq
Anticipated Discharge: Within 24 hours
Subjective/Interval History
-
Date of Service: August 03, 2024
denies nausea
Objective Data
-
Labs:
Laboratory Results
08/03/24
05:21
WBC 11.9 H
Hgb 10.7 L
Hct 33.5 L
Plt Count 277
Sodium 139
Potassium 4.0
Chloride 110 H
Carbon Dioxide 23
BUN 14
Creatinine 0.7
Glucose 100 H
Calcium 8.3 L
Vital Signs:
Vital Signs
Temp Pulse Resp BP Pulse Ox
98 F 104 16 122/71 92
08/03/24 07:51 08/03/24 07:51 08/03/24 07:51 08/03/24 07:51 08/03/24 07:51
I&O
08/02/24 08/03/24 08/04/24
06:59 06:59 06:59
Intake Total 880 / 880 1260 / 1260
Output Total 850 / 850 400 / 400
Balance 30 / 30 860 / 860
--- NOTE | 2024-08-03 13:40 | HOSPNOTE ---
Blaine from CM patient may be able to go to [facility] tomorrow 08/04 with hospice. Once patient is at [facility] we will sign patient onto hospice. CM updated and will need transport and OOH DNR.
[2024-08-03] MEDS: TYLENOL 650 MG PO (14:58)
[2024-08-03 15:13] VITALS: BP 108/60
[2024-08-03] MEDS: LOVENOX 40 MG SC (17:56)
[2024-08-03 23:20] VITALS: BP 109/65
[2024-08-04] MEDS: MORPHINE SULFATE 2 MG IV ×2 (03:16→11:18)
[2024-08-04 07:43] VITALS: BP 108/74
[2024-08-04] MEDS: FLOMAX 0.4 MG PO (07:52)
--- NOTE | 2024-08-04 10:19 | CM ---
Hospice saw patient in room.
Referral was placed in care port for [facility].
Spoke with Filemon Powell she said she would look at referral.
Spoke with Francisco Corley she left message for [facility] also.
LM with [facility] case aide Georgina [phone] or [phone].
PLAN Discharge planning ongoing
--- NOTE | 2024-08-04 11:59 | W.PN.HOSP.TC ---
Today's Communication/Plan
-
Monitor vital signs see plan
Pain control
Continue with Pyridium
Continue Flomax
Discharge pending placement, hospice involved. CM aware
Assessment / Plan
Assessment / Plan
General: Well Developed, Well Nourished and No Apparent Distress
HEENT: NormoCephalic, Moist mucous membranes and Atraumatic
Respiratory: Clear
Cardiac: S1/S2 and Regular Rhythm
GI: Soft, Non Tender, Non Distended, Normal Bowel Sounds and Other (enlarged area, soft and tender to palpation in RLQ )
Genito-urinary: no snow
Musculoskeletal: No Edema
Neuro: Awake, Alert, AO x 3 and Nonfocal/grossly intact
Psych: Calm
#bladder mass
#mediastinum mass
Abd/Pel CT: Severe superior bladder wall thickening concerning for a mural mass. Cystitis and bladder outlet obstruction cannot be excluded.
Moderate prostate hypertrophy.
Focal luminal narrowing of the mid transverse colon possibly peristalsis. An apple core lesion cannot be excluded. This could further be evaluated by barium enema or colonoscopy. Repeat
imaging with rectal contrast was also be performed.
Too small to hypodense hepatic lesions likely small cysts or hemangiomas. Additional hypodense lesion near the fissure for the ligamentum teres likely focal fatty infiltration. Metastatic disease
cannot be excluded.
Incompletely imaged pleural-based soft tissue mass along the right mediastinum concern for malignancy until proven otherwise. Nonurgent chest CT examination recommended with IV contrast
if not already known. Adjacent second mass versus focal consolidated lung.
Small right pleural effusion.
Gallstone.
Simple left renal cyst.
Urology following, they discussed TURP procedure to further evaluate and obtain a tissue biopsy. Patient at this time refusing any procedures/interim. Patient daughter also aware. Patient is very sure that he does not want any invasive
intervention. Discussed with case worker. Consulted palliative/hospice. CM for assistance with placement if patient qualifies. Will start checking routine labs
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 Pulmonary following; high risk
Per patient he has been having hematuria for a long time however did not follow-up
The patient and family would not want any further treatment then likely hospice will be appropriate
History of smoking
Severe protein calorie malnutrition
Continue Ensure
BPH
start flomax
Possible inguinal hernia
Code status: DNR
DVT prophylaxis: Lovenox sq
Anticipated Discharge: Today
Subjective/Interval History
-
Date of Service: August 04, 2024
has some pain
Objective Data
-
Vital Signs:
Vital Signs
Temp Pulse Resp BP Pulse Ox
98.9 F 105 17 108/74 92
08/04/24 07:43 08/04/24 07:43 08/04/24 07:43 08/04/24 07:43 08/04/24 07:43
I&O
08/03/24 08/04/24 08/05/24
06:59 06:59 06:59
Intake Total 1260 / 1260 420 / 420
Output Total 400 / 400 700 / 700
Balance 860 / 860 -280 / -280
[2024-08-04 15:35] VITALS: BP 114/68
--- NOTE | 2024-08-04 15:48 | CM ---
Spoke with Ibeth Powell she said she can accept on hospice.
Spoke with [facility] she is aware that [facility] can accept him tomorrow.
Spoke with Tanya and Ibeth from [facility] on conference call. Tanya vega is resistant to give her address.
LM with [facility] field nurse case manager Georgina [phone] or [phone].No call back.
DNT OOH on chart for MD signature.
Medical nec form completed for tomorrow at 11:00 am 08/05/24.
[facility]
report [phone]
fax [phone]
PLAN T [facility] on hospice
[2024-08-04] MEDS: LOVENOX 40 MG SC (17:45)
[2024-08-04] MEDS: MELATONIN 3 MG PO (22:31)
[2024-08-04 23:29] VITALS: BP 100/60
[2024-08-05 07:26] VITALS: BP 120/69
[2024-08-05] MEDS: FLOMAX 0.4 MG PO (09:12)
[2024-08-05] MEDS: MORPHINE SULFATE 2 MG IV (09:14)
--- NOTE | 2024-08-05 09:46 | CM ---
MD indicated pt ready for discharge.
Spoke with Filemon Powell she said she can accept on hospice today.
TT with [facility] she is aware that pt is going to [facility] will Hospice.
Spoke with [facility] embedded case manager Georgina [phone] or [phone].She is aware of todays plan . She confirmed that Hospice and [facility] are in network.
DNT OOH on chart for MD signature.
Medical nec form completed for tomorrow at 12:30 today.
Pt in agreement with plan.
[facility]
report [phone]
fax [phone]
also fax [phone]
PLAN To [facility] with hospice
--- NOTE | 2024-08-05 10:12 | W.PN.HOSP.TC ---
Today's Communication/Plan
-
monitor vitals
see plan
dc today on hospice
time of discharge 36 minutes
Assessment / Plan
Assessment / Plan
General: Well Developed, Well Nourished and No Apparent Distress
HEENT: NormoCephalic, Moist mucous membranes and Atraumatic
Respiratory: Clear
Cardiac: S1/S2 and Regular Rhythm
GI: Soft, Non Tender, Non Distended, Normal Bowel Sounds and Other (enlarged area, soft and tender to palpation in RLQ )
Genito-urinary: no snow
Musculoskeletal: No Edema
Neuro: Awake, Alert, AO x 3 and Nonfocal/grossly intact
Psych: Calm
#bladder mass
#mediastinum mass
Abd/Pel CT: Severe superior bladder wall thickening concerning for a mural mass. Cystitis and bladder outlet obstruction cannot be excluded.
Moderate prostate hypertrophy.
Focal luminal narrowing of the mid transverse colon possibly peristalsis. An apple core lesion cannot be excluded. This could further be evaluated by barium enema or colonoscopy. Repeat
imaging with rectal contrast was also be performed.
Too small to hypodense hepatic lesions likely small cysts or hemangiomas. Additional hypodense lesion near the fissure for the ligamentum teres likely focal fatty infiltration. Metastatic disease
cannot be excluded.
Incompletely imaged pleural-based soft tissue mass along the right mediastinum concern for malignancy until proven otherwise. Nonurgent chest CT examination recommended with IV contrast
if not already known. Adjacent second mass versus focal consolidated lung.
Small right pleural effusion.
Gallstone.
Simple left renal cyst.
Urology following, they discussed TURP procedure to further evaluate and obtain a tissue biopsy. Patient at this time refusing any procedures/interim. Patient daughter also aware. Patient is very sure that he does not want any invasive
intervention. Discussed with case management coordinator. Consulted palliative/hospice. for assistance with placement if patient qualifies. Will start checking routine labs
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 Pulmonary following; high risk
Per patient he has been having hematuria for a long time however did not follow-up
The patient and family would not want any further treatment then likely hospice will be appropriate
History of smoking
Severe protein calorie malnutrition
Continue Ensure
BPH
start flomax
Possible inguinal hernia
Code status: DNR
DVT prophylaxis: Lovenox sq
Anticipated Discharge: Today
Subjective/Interval History
-
Date of Service: August 05, 2024
denies nausea
Objective Data
-
Vital Signs:
Vital Signs
Temp Pulse Resp BP Pulse Ox
98.2 F 97 17 120/69 92
08/05/24 07:26 08/05/24 07:26 08/05/24 07:26 08/05/24 07:26 08/05/24 07:26
I&O
08/04/24 08/05/24 08/06/24
06:59 06:59 06:59
Intake Total 420 / 420 480 / 480
Output Total 700 / 700 700 / 700
Balance -280 / -280 -220 / -220
--- NOTE | 2024-08-05 10:13 | W.DCSUMMARY ---
Discharge Summary
Discharge Data
Date of Admission: 08/02/24
Date of Discharge: 08/05/24
-
Pending Results: No
Hospital Course
79-year-old male came to the hospital with abdominal pain concerning for possible inguinal hernia. Imaging was consistent with bladder and mediastinal mass. Urology was consulted initially who recommended TURP procedure for further evaluation
however patient refused any further intervention and procedures. Pulmonary was also consulted and patient refused further intervention. Patient continued to have hematuria and pain at times which mildly improved with Flomax. Given patient
advanced malignancy after speaking with consultants, patient and family decided for hospice. Patient was then later discharged on hospice.
Discharge Plan
-
Patient Disposition: Other
Discharge Diagnosis/Procedures: Bladder mass with hematuria
Mediastinal mass
Possible inguinal hernia
BPH
Severe protein calorie malnutrition
Condition: Fair
Diet: As tolerated
Activity: As tolerated
Driving Restrictions: As prior to admission
Bathing Restrictions: None
Activity Restrictions/Additional Instructions:
Follow-up with hospice
Referrals:
Steven Carey MD [Family Provider, Internal Medicine]
Prescriptions:
New
acetaminophen 325 mg Tablet
650 mg PO Q4HPRN PRN (Reason: mild pain/OMER/temp> 100.4F) Qty: 0 0RF
tamsulosin 0.4 mg Capsule
0.4 mg PO DAILY Qty: 30 0RF
phenazopyridine 100 mg Tablet
100 mg PO TIDPRN PRN (Reason: dysuria) Qty: 14 0RF
Discontinued
acetaminophen [Tylenol] 325 mg Tablet
650 mg PO TID
Discharge Orders:
Discharge Patient (As Directed); Ordered 08/05/24
Ordered By: Darwin Larose
Discharge Date and Time
Discharge Date/Time: 08/05/24 12:38
Print Language: SWAZI
[2024-08-05 12:30] VITALS: BP 120/65
== END 2024-08-05 12:38 | DRG 686 ==
LOC: 3 WEST ACU 09:45
PROVIDERS: Nurse Practitioner Family; Physician Assistant; Student in an Organized Health Care Education/Training Program; ADMITTING PHYSICIAN Hospitalist; ATTENDING PHYSICIAN Internal Medicine; CONSULT PHYSICIAN Internal Medicine Critical Care Medicine; CONSULT PHYSICIAN Urology; EMERGENCY PHYSICIAN Student in an Organized Health Care Education/Training Program; FAMILY PHYSICIAN Internal Medicine
DX: C67.9 Malignant neoplasm of bladder, unspecified (principal); E43 Unspecified severe protein-calorie malnutrition; Z59.01 Sheltered homelessness; C78.00 Secondary malignant neoplasm of unspecified lung; F17.210 Nicotine dependence, cigarettes, uncomplicated; Z66 Do not resuscitate; Z68.22 Body mass index [BMI] 22.0-22.9, adult
CPT/HCPCS: 71260; 74177; 80048; 80053; 81003; 81015; 85025; 85027; 86803; 87086; 88112; 97163; 99285; Q9967